=== PATIENT | female | born 1955 | race Caucasian/White ===

== ENCOUNTER → 2017-10-19 10:05 | Outpatient (CLI) | payer OTHER, SELFPAY ==
[2017-10-19 11:34] LABS: Alanine Aminotransferase 55 IU/L (9-52); Albumin 4.5 g/dL (3.5-5.0); Albumin Globulin Ratio 1.7 (1.0-2.8); Alkaline Phosphatase 69 U/L (38-126); Aspartate Aminotransferase 35 IU/L (14-36); BUN Creatinine Ratio 18.6 (6-22); Bilirubin Total 0.5 mg/dL (0.2-1.3); Calcium 9.9 mg/dL (8.4-10.2); Estimated Glomerular Filt Rate > 60.0 mL/min (>60); Globulin 2.7 g/dL (1.7-4.1); Glucose 93 mg/dL (80-110); HEMOLYSIS < 15 (0-50); Potassium 4.9 mmol/L (3.4-5.1); Sodium 140 mmol/L (137-145); Total Protein 7.2 g/dL (6.3-8.2)
== END ==
PROVIDERS: Visit Provider Otolaryngology
DX: Z86.018 Personal history of other benign neoplasm (principal); Z98.890 Other specified postprocedural states
CPT/HCPCS: 36415; 80053

== ENCOUNTER → 2017-10-20 16:49 | Outpatient (CLI) | payer OTHER, SELFPAY ==
--- NOTE | 2017-10-20 | DI.MRI.S_ITS ---
PROCEDURE: MR BRAIN (IAC) WWO CON INDICATIONS: DIZZINESS TECHNIQUE: Noncontrast sagittal T1 spin echo, axial FLAIR, axial gradient echo, axial diffusion and ADC through the brain. Axial thin-slice 3D CISS, coronal TruFISP, axial T1 spin echo with fat saturation through the internal auditory canals. After the administration of contrast, thin slice axial and coronal T1 spin echo with fat saturation through the internal auditory canals, and axial T1 spin echo with fat saturation through the brain. COMPARISON: None. FINDINGS: Image quality: Excellent. Cerebellopontine angles: No cerebellopontine angle masses. Inner ear structures appear normally formed. No suspicious enhancement in the internal auditory canal or along the course of the 7th cranial nerve. CSF spaces: Ventricles are normal in size and shape. No extra-axial fluid collections. Basal cisterns are patent. The cisterna magna is mildly enlarged and slightly lobulated in contour Brain: No intracranial bleeds or mass effects. Yanez-white matter interface is intact. No abnormal intracranial enhancement. Diffusion weighted images demonstrate no acute ischemic insults. A few small bright flair signal changes are scattered bilaterally. Brainstem appears normal. Normal intravascular flow voids are present. Skull and face: Calvarial marrow signal is normal. Orbits appear normal. Sinuses: Sinuses and mastoids are clear. IMPRESSION: 1. No enhancing lesions in the IACs. No mass lesions in the cerebellopontine angles. No evidence of recurrent right acoustic neurinoma. 2. A few scattered flair signal changes are likely age related small vessel ischemic change. 3. Prominent cisterna magna, normal developmental variant. Dictated by: Dusty Blank M.D. on 10/23/2017 at 8:09 Approved by: Dusty Blank M.D. on 10/23/2017 at 8:18
== END ==
PROVIDERS: Visit Provider Otolaryngology
DX: R42 Dizziness and giddiness (principal)
CPT/HCPCS: 70553; A9579

== ENCOUNTER → 2018-05-16 07:01 | Outpatient (CLI) | payer OTHER, SELFPAY ==
--- NOTE | 2018-05-16 | DI.US.S_ITS ---
PROCEDURE: US ABDOMEN COMPLETE INDICATIONS: NONALCHOHOLIC STEATOHEPATITIS TECHNIQUE: Real-time scanning was performed of the abdominal and retroperitoneal organs, with image documentation. COMPARISON: None. FINDINGS: Liver: Liver is normal in size. Increased liver parenchymal echotexture is noted, no discrete hepatic lesion. Gallbladder: There is no gallstone. No gallbladder wall thickening or pericholecystic fluid. No sonographic Benjamin's sign. Biliary ducts: Intrahepatic bile ducts are non-dilated. Extrahepatic bile duct caliber measures 5.7 mm. Normal is 6-7 mm or less in diameter, or 10 mm or less post-cholecystectomy. Pancreas: Visualized portions of the pancreas are sonographically normal. Spleen: Spleen is normal in size and homogeneous in echotexture. Kidneys: Kidneys are normal in size and echotexture. Right kidney measures 9.1 cm long; left kidney measures 9.3 cm long. No hydronephrosis or nephrolithiasis. No solid masses. Aorta: Visualized aorta is normal in caliber at less than 3 cm. Iliacs: Proximal common iliac arteries are normal in caliber at less than 2.5 cm. IVC: Intrahepatic inferior vena cava is patent. Miscellaneous: No free abdominal fluid. IMPRESSION: Mild to moderate hepatic steatosis. No discrete hepatic lesion. No biliary ductal dilatation. Rest of exam is unremarkable. Dictated by: Jerome Oates M.D. on 05/16/2018 at 9:10 Approved by: Jerome Oates M.D. on 05/16/2018 at 9:11
== END ==
PROVIDERS: PCP Naturopath; Visit Provider Naturopath
DX: K75.81 Nonalcoholic steatohepatitis (NASH) (principal)
CPT/HCPCS: 76700

== ENCOUNTER → 2018-11-19 08:36 | Outpatient (CLI) | payer OTHER, SELFPAY ==
--- NOTE | 2018-11-19 | DI.US.S_ITS ---
PROCEDURE: US ABDOMEN LIMITED INDICATIONS: FATTY(CHANGE OF) LIVER, NOT ELSEWHERE CLASSIFIED TECHNIQUE: Real-time focused scanning was performed of the abdomen, with image documentation. COMPARISON: None. FINDINGS: The liver measures 17.2 cm in length and demonstrates slightly increased echogenicity. Layering subcentimeter stones and sludge are present within the gallbladder fundus. The gallbladder wall measures 2.3 mm in diameter. No pericholecystic fluid or sonographic Benjamin sign. No intrahepatic biliary ductal dilatation. The common bile duct measures up to 8 mm in diameter. IMPRESSION: 1. Cholelithiasis. No findings to suggest acute cholecystitis. 2. Mild common bile duct ectasia. Although no calculi are visualized, choledocholithiasis cannot be excluded. If further characterization is warranted, consider MRCP. 3. Mildly increased hepatic echogenicity which may be associated with hepatic steatosis although other sources of hepatocellular dysfunction could be considered in the differential diagnosis. Dictated by: Ivy Henson M.D. on 11/19/2018 at 11:41 Approved by: Ivy Henson M.D. on 11/19/2018 at 11:43
== END ==
PROVIDERS: PCP Naturopath; Visit Provider Naturopath
DX: K76.0 Fatty (change of) liver, not elsewhere classified (principal); K80.20 Calculus of gallbladder without cholecystitis without obstruction; K83.8 Other specified diseases of biliary tract
CPT/HCPCS: 76705

== ENCOUNTER → 2019-06-28 08:33 | Outpatient (CLI) | payer OTHER, SELFPAY ==
--- NOTE | 2019-06-28 | DI.US.S_ITS ---
PROCEDURE: US ABDOMEN COMPLETE INDICATIONS: CALCULUS OF THE GB WITHOUT CHOLECYSTITIS TECHNIQUE: Real-time scanning was performed of the abdominal and retroperitoneal organs, with image documentation. COMPARISON: [facility], US, US ABDOMEN COMPLETE, 05/16/2018, 7:29. FINDINGS: Liver: The liver demonstrates normal size. The liver demonstrates generalized mildly increased echogenicity. This decreases ultrasound sensitivity for detection of hepatic masses. Gallbladder: Multiple small dependent gallstones are seen. Adenomyomatosis is incidentally noted within the wall of the gallbladder fundus. The gallbladder wall is not thickened, measuring 3 mm or less. No specific pericholecystic fluid is seen. The sonographic Benjamin sign is negative. Biliary ducts: Intrahepatic bile ducts are non-dilated. The common duct is mildly dilated at 8 mm. Normal is 6-7 mm or less in diameter, or 10 mm or less post-cholecystectomy. Pancreas: Visualized portions of the pancreas are sonographically normal. Spleen: Spleen is normal in size and homogeneous in echotexture. Kidneys: Kidneys are normal in size and echotexture. Right kidney measures 10.2 cm long; left kidney measures 10.5 cm long. No hydronephrosis or nephrolithiasis. No solid masses. Aorta: Visualized aorta is normal in caliber at less than 3 cm. Iliacs: Proximal common iliac arteries are normal in caliber at less than 2.5 cm. IVC: Intrahepatic inferior vena cava is patent. Miscellaneous: No free abdominal fluid. IMPRESSION: Multiple small dependent gallstones are seen, without additional sonographic signs of cholecystitis and Mild biliary dilatation is seen. As clinically appropriate, an MRCP could be considered for further evaluation (assuming that there is no contraindication to MRI). The liver demonstrates mildly increased echogenicity. This finding is nonspecific, yet it is most commonly attributed to fatty infiltration. Dictated by: Anselmo Reed M.D. on 06/28/2019 at 11:16 Approved by: Anselmo Reed M.D. on 06/28/2019 at 11:18
== END ==
PROVIDERS: PCP Naturopath; Visit Provider Naturopath
DX: K80.20 Calculus of gallbladder without cholecystitis without obstruction (principal); R76.0 Raised antibody titer; K83.8 Other specified diseases of biliary tract
CPT/HCPCS: 76700

== ENCOUNTER → 2020-06-18 14:06 | Outpatient (CLI) | payer OTHER, SELFPAY ==
--- NOTE | 2020-06-18 | DI.US.S_ITS ---
PROCEDURE: US ABDOMEN COMPLETE INDICATIONS: CALC. OF GALLBLADDER TECHNIQUE: Real-time scanning was performed of the abdominal and retroperitoneal organs, with image documentation. COMPARISON: None. FINDINGS: Liver: Liver is normal in size and homogeneous in echotexture. Gallbladder: Multiple tiny mobile gallstones are noted. Gallbladder wall is mildly thickened to 3.7 millimeters. No pericholecystic fluid. Epigastric tenderness noted, however no sonographic Benjamin sign was reported. Biliary ducts: Intrahepatic bile ducts are non-dilated. Extrahepatic bile duct caliber measures 6.8 mm. Normal is 6-7 mm or less in diameter, or 10 mm or less post-cholecystectomy. Pancreas: Visualized portions of the pancreas are sonographically normal. Spleen: Spleen is normal in size and homogeneous in echotexture. Kidneys: Kidneys are normal in size and echotexture. Right kidney measures 9.6 cm long; left kidney measures 11.3 cm long. No hydronephrosis or nephrolithiasis. No solid masses. Aorta: Visualized aorta is normal in caliber at less than 3 cm. Iliacs: Proximal common iliac arteries are normal in caliber at less than 2.5 cm. IVC: Intrahepatic inferior vena cava is patent. Miscellaneous: No free abdominal fluid. IMPRESSION: Cholelithiasis with mild gallbladder wall thickening suspicious for early acute cholecystitis. Dictated by: Ana Laura Liang MD, PhD on 06/18/2020 at 16:19 Approved by: Ana Laura Liang MD, PhD on 06/18/2020 at 16:25
== END ==
PROVIDERS: PCP Naturopath; Referring Provider Naturopath; Visit Provider Naturopath
DX: K80.20 Calculus of gallbladder without cholecystitis without obstruction (principal)
CPT/HCPCS: 76700

== ENCOUNTER → 2020-06-19 13:59 | Outpatient (CLI) | payer OTHER, SELFPAY ==
[2020-06-19 16:25] LABS: Add Manual Diff / Slide Review NO; Basophils Absolute Auto 0 /uL (0-100); Basophils Percent Auto 0.3 % (0-2); Eosinophils Absolute Auto 200 /uL (0-450); Eosinophils Percent Auto 2.7 % (2-4); Hematocrit 39.8 % (36-46); Hemoglobin 13.2 g/dL (12.0-16.0); Lymphocytes Absolute Auto 1400 /uL (1100-4500); Lymphocytes Percent Auto 23.6 % (25-40); Mean Corpuscular HGB Conc 33.1 % (30-36); Mean Corpuscular Hemoglobin 29.2 PG (26-34); Mean Corpuscular Volume 88.3 fL (80-100); Monocytes Absolute Auto 500 /uL (0-900); Monocytes Percent Auto 8.6 % (3-14); Neutrophils Absolute Auto 3800 /uL (1500-7000); Neutrophils Percent Auto 64.8 % (50-75); Platelet Count 218 X10^3/uL (150-400); Red Blood Cell Count 4.51 X10^6/uL (4.0-5.2); Red Cell Distribution Width 13.4 % (11.6-14.8); White Blood Cell Count 5.9 X10^3/uL (4.5-11.0)
[2020-06-19 16:38] LABS: Hemoglobin A1C% w Est Avg Glu 5.4 % (4.0-6.0)
[2020-06-19 16:40] LABS: Albumin 4.2 g/dL (3.5-5.0); Albumin Globulin Ratio 1.5 (1.0-2.8); Alkaline Phosphatase 126 U/L (38-126); Amylase 1176 U/L (30-110); Aspartate Aminotransferase 360 IU/L (14-36); BUN Creatinine Ratio 11.6 (6-22); Bilirubin Total 1.6 mg/dL (0.2-1.3); Blood Urea Nitrogen 8 mg/dL (7-17); Calcium 9.3 mg/dL (8.4-10.2); Carbon Dioxide 29 mmol/L (22-32); Chloride 97 mmol/L (98-107); Cholesterol 258 mg/dL (140-199); Estimated Glomerular Filt Rate > 60.0 mL/min (>60); Globulin 2.8 g/dL (1.7-4.1); Glucose 82 mg/dL (80-110); HDL Cholesterol 88 mg/dL (40-60); HEMOLYSIS < 15 (0-50); LDL Cholesterol Calculated 151 mg/dL (<100); Potassium 3.8 mmol/L (3.4-5.1); Sodium 130 mmol/L (137-145); Triglycerides 94 mg/dL (35-150)
[2020-06-19 16:51] LABS: Alanine Aminotransferase 935 IU/L (<35)
[2020-06-19 16:58] LABS: Lipase 9980 U/L (23-300)
== END ==
PROVIDERS: PCP Naturopath; Referring Provider Naturopath; Visit Provider Naturopath
DX: Z00.00 Encounter for general adult medical examination without abnormal findings (principal); E03.9 Hypothyroidism, unspecified; E78.5 Hyperlipidemia, unspecified; R10.9 Unspecified abdominal pain
CPT/HCPCS: 36415; 80053; 80061; 82150; 83036; 83690; 84443; 85025

== ENCOUNTER 2020-06-20 12:02 | Emergency (ER) | payer OTHER, SELFPAY ==
[2020-06-20 12:12] VITALS: BP 137/78; PULSE 64; PULSE 69; RESP 16; TEMP 36.6; O2SAT 97; O2SAT 99; BMI 24.1
[2020-06-20 12:30] VITALS: PULSE 66; O2SAT 97
[2020-06-20 12:48] LABS: Add Manual Diff / Slide Review NO; Basophils Absolute Auto 0 /uL (0-100); Basophils Percent Auto 0.3 % (0-2); Eosinophils Absolute Auto 200 /uL (0-450); Eosinophils Percent Auto 2.4 % (2-4); Hematocrit 39.5 % (36-46); Hemoglobin 13.2 g/dL (12.0-16.0); Lymphocytes Absolute Auto 1600 /uL (1100-4500); Lymphocytes Percent Auto 22.4 % (25-40); Mean Corpuscular HGB Conc 33.4 % (30-36); Mean Corpuscular Hemoglobin 29.8 PG (26-34); Monocytes Absolute Auto 600 /uL (0-900); Monocytes Percent Auto 7.6 % (3-14); Neutrophils Absolute Auto 4900 /uL (1500-7000); Neutrophils Percent Auto 67.3 % (50-75); Platelet Count 216 X10^3/uL (150-400); Red Blood Cell Count 4.44 X10^6/uL (4.0-5.2); Red Cell Distribution Width 13.4 % (11.6-14.8); White Blood Cell Count 7.3 X10^3/uL (4.5-11.0)
[2020-06-20 12:53] LABS: Alanine Aminotransferase 668 IU/L (<35); Albumin 4.4 g/dL (3.5-5.0); Albumin Globulin Ratio 1.5 (1.0-2.8); Alkaline Phosphatase 123 U/L (38-126); Aspartate Aminotransferase 144 IU/L (14-36); BUN Creatinine Ratio 16.2 (6-22); Blood Urea Nitrogen 11 mg/dL (7-17); Calcium 9.5 mg/dL (8.4-10.2); Carbon Dioxide 30 mmol/L (22-32); Chloride 99 mmol/L (98-107); Estimated Glomerular Filt Rate > 60.0 mL/min (>60); Globulin 2.9 g/dL (1.7-4.1); Glucose 91 mg/dL (80-110); HEMOLYSIS < 15 (0-50); Lipase 543 U/L (23-300); Sodium 133 mmol/L (137-145); Total Protein 7.3 g/dL (6.3-8.2)
[2020-06-20 13:00] VITALS: PULSE 57; O2SAT 99
--- NOTE | 2020-06-20 13:04 | ED_ITS ---
HPI - Abdominal Pain General Chief Complaint: Abdominal Pain Stated Complaint: Pancreatitis Time Seen by Provider: 06/20/20 12:09 History of Present Illness HPI narrative: 65-year-old otherwise healthy woman presents with 3 days of abdominal pain with abnormal blood work and significantly elevated lipase and LFTs noted yesterday. 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 Seem to rodrigo slightly with some Tylenol and over the next 3 days she has had waves of pain that have continued. She talk to her primary care physician and had an ultrasound done mild gallbladder wall thickening suspicious for early acute cholecystitis. On June 19 indicates AST ALT total bili amylase and lipase were all elevated. When her primary care physician cell those results morning she asked patient to come to the emergency department. The patient notes that her pain has essentially abated as of last night. It feels like a dull ache at this point but she clearly is feeling better. At no point did she describe any jaundice, dizziness, syncope or near-syncope. Review of Systems Review of Systems Narrative: Remainder of review of systems including constitutional, ENT, cardio vascular, respiratory, GI, , musculoskeletal, skin, neurologic and psychiatric systems reviewed and are unremarkable except as noted in HPI. Patient History Medical History Cholelithiasis Exam Narrative Exam Narrative: General: Healthy appearing, in no acute distress. Able to give a complete and coherent history. Well-nourished well-developed HEENT: Moist mucous membranes, normal sclera with reactive pupils, Respiratory: Lungs are clear to auscultation, no wheezing no rales no rhonchi. Full and symmetrical air movement Cardiac: Regular rate and rhythm no murmurs no bruits Abdomen: Soft, mild tenderness left upper and left lower quadrant without rebound or guarding, good bowel tones, no flank pain Skin: Warm and dry, no rashes, no jaundice Neurologic: Grossly neurologically intact with no obvious asymmetries or abnormalities Extremities: No trauma, well perfused Psych: Cooperative, appropriate insight and affect Initial Vital Signs Initial Vital Signs: Vital Signs Temperature 97.9 F 06/20/20 12:12 Pulse Rate 69 06/20/20 12:12 Respiratory Rate 16 06/20/20 12:12 Blood Pressure 137/78 06/20/20 12:12 Pulse Oximetry 97 06/20/20 12:12 Course Orders Ordered: ED Orders 06/20/20 12:21 Complete Blood Count AUTO DIFF Stat Comprehensive Metabolic Panel Stat Lipase Stat Sodium Chloride (Normal Saline 0.9%) 1,000 mls @ 150 mls/hr IV CONT ERNESTO Vital Signs Vital signs: Vital Signs - 8 hr 06/20/20 12:12 Temperature 97.9 F Pulse Rate 69 Respiratory Rate 16 Blood Pressure 137/78 Pulse Oximetry 97 MDM - Abdominal Pain Medical Records Attestation: I reviewed the patient's medical records. Lab Data Attestation: I reviewed the patient's lab results. Result diagrams: 06/20/20 12:35 06/20/20 12:35 Labs: Lab Results 06/20/20 06/20/20 Range/Units 12:35 12:35 WBC 7.3 (4.5-11.0) X10^3/uL RBC 4.44 (4.0-5.2) X10^6/uL Hgb 13.2 (12.0-16.0) g/dL Hct 39.5 (36-46) % MCV 89.0 (80-100) fL MCH 29.8 (26-34) PG MCHC 33.4 (30-36) % RDW 13.4 (11.6-14.8) % Plt Count 216 (150-400) X10^3/uL Neut % (Auto) 67.3 (50-75) % Lymph % (Auto) 22.4 L (25-40) % [place] % (Auto) 7.6 (3-14) % Eos % (Auto) 2.4 (2-4) % Baso % (Auto) 0.3 (0-2) % Neut # (Auto) 4900 (8513-2542) /uL Lymph # (Auto) 1600 (7653-7868) /uL [place] # (Auto) 600 (0-900) /uL Eos # (Auto) 200 (0-450) /uL Baso # (Auto) 0 (0-100) /uL Sodium 133 L (137-145) mmol/L Potassium 4.0 (3.4-5.1) mmol/L Chloride 99 (98-107) mmol/L Carbon Dioxide 30 (22-32) mmol/L BUN 11 (7-17) mg/dL Creatinine 0.68 (0.52-1.04) mg/dL Estimated GFR > 60.0 (>60) mL/min BUN/Creatinine Ratio 16.2 (6-22) Glucose 91 (80-110) mg/dL Calcium 9.5 (8.4-10.2) mg/dL Total Bilirubin 1.0 (0.2-1.3) mg/dL AST 144 H (14-36) IU/L ALT 668 H (<35) IU/L Alkaline Phosphatase 123 (38-126) U/L Total Protein 7.3 (6.3-8.2) g/dL Albumin 4.4 (3.5-5.0) g/dL Globulin 2.9 (1.7-4.1) g/dL Albumin/Globulin Ratio 1.5 (1.0-2.8) Lipase 543 H D (23-300) U/L ECG Data Attestation: I personally reviewed and interpreted this ECG as follows: Interpretation: Sinus rhythm at a rate of 61 Normal intervals, normal axis Normal EKG without ischemic changes MDM Narrative Medical decision making narrative: 65-year-old woman with 3 days of abdominal pain, gallstones without cholecystitis were identified and yesterday elevated bilirubin, LFTs and amylase and lipase were markedly elevated. By last night her pain had improved in today continues to improve. Labs are also improving with bilirubin back down to normal. At this point most likely explanation is that she had a common duct stone that she has spontaneously passed with subseque nt gallstone pancreatitis that now is resolving. She has no fever, there is no evidence of further obstruction, pain is completely tolerable and she is tolerating food at this time. Case is briefly reviewed with Dr. Melo, general surgeon on-call. Findings diagnosis and anticipated outcome (complete resolution of pain and symptoms) reviewed with patient and her . This point she is safe to go home. Discussed the importance of surgical follow-up as an outpatient to discuss her known cholelithiasis and risks and benefits of a scheduled outpatient cholecystectomy. She is safe for home discharge Discharge Plan Departure Patient Disposition: Home Clinical Impression: Cholelithiasis Qualifiers: Cholelithiasis location: gallbladder and bile duct Cholecystitis presence: without cholecystitis Biliary obstruction: without biliary obstruction Qualified Code(s): K80.70 - Calculus of gallbladder and bile duct without cholecystitis without obstruction Instructions: DI for Cholecystitis Activity Restrictions/Additional Instructions: Thank you for coming in today You of managed to whether this fairly painful presentation all by yourself and your body seems to be improving nicely. You do have gallstones and it appears that 1 of the gallstones got stuck in your bile duct causing the pain and the blood abnormalities noticed yesterday. With your pain improving significantly and all of your lab work improving nicely, I suspect this stone has passed. I did review your case with Dr. Melo, our general surgeon. He agrees that going home seems to be safe at this time. He will happily see you in his clinic to talk about gallstones and whether not you need to have your gallbladder removed in the near future. Please call his office to schedule an appointment If you develop fevers, increasing abdominal pain jaundice other concerning findings or new symptoms you do need to return to the emergency department. A good rule of thumb regarding pain, unless your actually in labor needing to use lamaze breathing is pain severe enough for an ER visit:) Referrals: Santa Gupta ND [Primary Care Provider] - Joaquim Melo MD [Physician] -
[2020-06-20 13:30] VITALS: PULSE 63; O2SAT 100
[2020-06-20 13:38] VITALS: BP 120/68; PULSE 54; RESP 20; O2SAT 100
== END 2020-06-20 13:45 | disposition home or self-care (01) ==
PROVIDERS: Emergency Provider Emergency Medicine; PCP Naturopath
DX: K80.70 Calculus of gallbladder and bile duct without cholecystitis without obstruction (principal); R07.9 Chest pain, unspecified; R79.89 Other specified abnormal findings of blood chemistry
CPT/HCPCS: 36415; 80053; 83690; 85025; 93005; 93010; 99283; 99284

== ENCOUNTER → 2020-07-13 10:10 | Outpatient (CLI) | payer OTHER, SELFPAY ==
[2020-07-13 12:04] LABS: COVID19 -Nasal RAPID Negative (Negative)
== END ==
PROVIDERS: PCP Naturopath; Visit Provider Surgery
DX: Z01.812 Encounter for preprocedural laboratory examination (principal); Z20.822 Contact with and (suspected) exposure to COVID-19
CPT/HCPCS: 87635; C9803

== ENCOUNTER 2020-07-14 10:48 | Day surgery (SDC) | payer OTHER, SELFPAY ==
[2020-07-14] VITALS (9 sets, daily range): BP systolic 112–137; BP diastolic 59–73; PULSE 45–68; RESP 11–20; TEMP 36.1–36.8; O2SAT 64–100; BMI 24.6
--- NOTE | 2020-07-14 | PATH_ITS ---
[facility] Accession Number: [id number] . 01 Material submitted: . gallbladder - GALLBLADDER AND CONTENTS . 02 Diagnosis: Gallbladder and Contents, Cholecystectomy: Chronic cholecystitis, cholesterolosis and cholelithiasis. MRV 07/20/2020 1513 Local . 02 Electronically signed: . Elsy Anna MD, Pathologist NPI- [id number] . 01 Gross description: . The specimen is received in formalin, labeled gallbladder and contents and consists of a 6.5 x 3.5 x 2.5 cm focally disrupted gallbladder with a 0.2 cm in diameter cystic duct. Opening reveals green viscous bile with multiple burgess-green bosselated choleliths ranging from 0.1 to 0.8 cm and measuring 5.0 x 2.0 x 2.0 cm in aggregate. The mucosa is burgess-green and velvety with cholesterolosis, and the wall thickness measures 0.2 cm. Machine Fur [employer]er sections are submitted to include the en face cystic duct margin (blue) in cassette A1. ([id number]) /MRV 07/16/2020 1117 Local . 02 Pathologist provided ICD-10: K80.60, K81.1 . 02 CPT . 146423 Performed at: 01 [facility] [address], [place], [place] [id number] MD Valerio Pacheco MD Phone: [phone] Performed at: 02 [facility] [address] [place], [place] [id number] MD Maria G Collier MD Phone: [phone]
[2020-07-14] MEDS: LACTATED RINGERS 1,000 ML 100 ML IV ×2 (11:47→14:39)
--- NOTE | 2020-07-14 12:44 | PM.PREOP ---
Pre-operative Note Interval Note History & Physical reviewed/Exam performed by Physician: Yes Changes to H&P: No
[2020-07-14] MEDS: CEFAZOLIN 2 GM/100 ML FROZ.PIGGY IV (12:53)
--- NOTE | 2020-07-14 13:17 | SUR.OPER ---
Supine on padded OR bed, head on pillow, safety belt at thigh, left arm padded and tucked at side. Right arm secured on padded arm oard <90 degrees abduction. Legs uncrossed. Padded footboard in place. Tape over blanket to secure lower legs.
[2020-07-14] MEDS: BUPIVACAINE 0.25% (PF) VIAL 30 ML INJ (13:22)
--- NOTE | 2020-07-14 14:18 | P.OP_ITS ---
Operative Date/Time/Diagnoses Date of procedure: 07/14/20 Time of procedure: 14:18 Pre-op diagnosis: gallstone pancreatitis Post-op diagnosis: same Procedure & Clinicians Procedure: laparoscopic cholecystectomy Same procedure as scheduled: Yes Indications: 65F with biliary colic and gallstone pancreatitis here for elective cholecystectomy Surgeon: Joaquim Melo Anesthesia Type: General Operative Notes Findings: Chronic cholecystitis. Specimen(s): other (gallbladder) Estimated Blood Loss (mL): 50 Procedure in detail: The patient was placed supine on the table and bilateral lower extremity compression devices were applied. Anesthesia was induced they were intubated with an endotracheal tube and received 2g of Ancef. A time-out was performed. They were prepped and draped in sterile fashion. An infraumbilical incision was made, the umbilical stalk was elevated and the fascia was sharply incised entering the abdomen atraumatically. A blunt tip 12mm balloon trocar was then inserted, pneumoperitoneum was established and inspection of the abdomen demonstrated no evidence of injury. They were placed head up and right side up and then a 11 mm port was placed high in the epigastrium and two 5mm in the right upper quadrant. The omentum was adherent to the gallbladder was carefully take down. The gallbladder was grasped by the fundus and retracted over the liver and retracted laterally by the infundibulum. Using electrocautery the lateral plane between the gallbladder and the liver was opened towards the fundus. The gallbladder was then retracted laterally and the medial plane was developed in the same manner. With the gallbladder mobilized the bottom of the cystic plate was visualized. The hepatocystic triangle was meticulosly skeletonized using hook electrocautery of all fat and fibrous tissue from both the front and the back. Only two structures were then clearly seen entering the gallbladder the cystic duct and the cystic artery. With the critical view of safety fully established the cystic duct was clipped twice proximally and once distally using the 10 mm clip applied under direct vi sualization and then sharply divided. The cystic artery was divided in the same fashion. The gallbladder was removed from the liver bed using electro cautery. The liver bed was then inspected for hemostasis and this was achieved. The abdomen was irrigated with sterile saline and inspection was made that showed the clips in good position. The specimen was removed using Endo-Catch. The abdomen was desufflated. The umbilical fascia was closed with 0 Vicryl in a [id number] fashion under direct visualization. Skin incisions were irrigated and closed with 4-0 Monocryl. 30 ml of 0.25% bupivacaine was infiltrated into the subcutaneous tissue of the incisions. The wounds were sealed with Dermabond. Patient emerged from anesthesia was extubated and transferred to recovery in stable condition. The sponge and instrument count at the end of the operation was correct. Complications: none Post-operative Condition: stable Disposition: same day surgery
[2020-07-14] MEDS: HYDROMORPHONE 2 MG INJ IV (14:32)
[2020-07-14] MEDS: fentaNYL 100 MCG/2 ML INJ IV (14:32)
[2020-07-14] MEDS: ONDANSETRON 4 MG/2 ML INJ IV (14:32)
[2020-07-14] MEDS: OXYCODONE/ACETAMINOPHEN 5/325 TABLET 1 TAB PO ×2 (15:00→15:32)
--- NOTE | 2020-07-14 15:57 | SUR.PHASEII ---
pt tolerating apple sauce and glendy tram, fully dressed and waiting in chair for her , no further c/o pain voiced and no nausea.
== END 2020-07-14 16:05 | disposition home or self-care (01) ==
PROVIDERS: PCP Naturopath; Referring Provider Surgery; Visit Provider Surgery
PROC: 0FT44ZZ Resection of Gallbladder, Percutaneous Endoscopic Approach (ICD-10-PCS; CPT 47562; principal; 2020-07-14 12:15)
DX: K80.10 Calculus of gallbladder with chronic cholecystitis without obstruction (principal)
CPT/HCPCS: 47562; J0690; J1100; J1170; J1885; J2250; J2405; J2704; J3010

== ENCOUNTER → 2023-08-05 10:35 | Outpatient (CLI) | payer MEDICARE, SELFPAY ==
--- NOTE | 2023-08-05 | DI.MRI.S_ITS ---
PROCEDURE: MR LUMBAR SPINE WO CON INDICATIONS: Radiculopathy, lumbar region TECHNIQUE: Noncontrast sagittal T1 spin echo and T2 fast echo, sagittal STIR, and T2 fast spin echo through the lumbar spine. In cases with scoliosis, additional coronal T2 fast spin echo may be performed. COMPARISON: None. FINDINGS: Image quality: Excellent. Alignment and Curvature: Mild levocurvature of the lumbar spine. Bone Marrow: T11 vertebral body hemangioma. Marrow is of normal overall signal. No acute vertebral body compression fractures. Spinal Cord: Conus medullaris terminates at the T12-L1 level. Visualized cord demonstrates normal signal and size. Paraspinous Soft Tissues: No paravertebral masses. T12-L1: Normal appearance. L1-L2: Disc desiccation and mild disc height loss. Minimal disc bulge. No central canal or neural foraminal stenosis. L2-L3: Disc desiccation height loss. No central canal or neural foraminal stenosis. L3-L4: Facet arthropathy. No central canal stenosis. No neural foraminal stenosis. At L4-L5: Disc desiccation and mild height loss. Minimal posterior disc bulge with annular tear. Facet arthropathy. No central canal stenosis. Mild neural foraminal stenosis bilaterally. L5-S1: No central canal or neural foraminal stenosis. IMPRESSION: 1. Mild degenerative changes of the lumbar spine as described above. 2. No significant central canal stenosis. 3. Mild bilateral neural foraminal stenosis at L4-5. Otherwise, the neural foramina are patent. Dictated by: Mak Box M.D. on 08/07/2023 at 9:54 Approved by: Mak Box M.D. on 08/07/2023 at 9:58
== END ==
LOC: MRI 10:36
PROVIDERS: PCP Naturopath; Referring Provider Physical Medicine & Rehabilitation; Visit Provider Physical Medicine & Rehabilitation
DX: M47.26 Other spondylosis with radiculopathy, lumbar region (principal); M48.061 Spinal stenosis, lumbar region without neurogenic claudication
CPT/HCPCS: 72148

== ENCOUNTER → 2025-02-25 07:41 | Outpatient (CLI) | payer MEDICARE, SELFPAY ==
[2025-02-25 08:26] LABS: Add Manual Diff / Slide Review NO; Hematocrit 39.0 % (36-46); Hemoglobin 13.5 g/dL (12.0-16.0); Lymphocytes Absolute Auto 1900 /uL (1100-4500); Mean Corpuscular HGB Conc 34.5 % (30-36); Mean Corpuscular Hemoglobin 29.3 PG (26-34); Mean Corpuscular Volume 85.1 fL (80-100); Platelet Count 283 X10^3/uL (150-400)
== END ==
PROVIDERS: PCP Family Medicine; Referring Provider Family Medicine; Visit Provider Family Medicine
DX: R79.89 Other specified abnormal findings of blood chemistry (principal)
CPT/HCPCS: 36415; 85025